=== PATIENT | female | born 1970 | race Asian ===

== ENCOUNTER → 2018-04-07 | Outpatient (CLI) | payer BC | END | disposition home or self-care (01) | LOC: CFH 10:22 | PROVIDERS: ATTEND Nurse Practitioner Family | DX: M21.941 Unspecified acquired deformity of hand, right hand (principal) ==

== ENCOUNTER → 2018-10-20 | Outpatient (CLI) | payer BC | END | disposition home or self-care (01) | LOC: CFH 08:38 | PROVIDERS: ATTEND Nurse Practitioner Family | DX: N63.10 Unspecified lump in the right breast, unspecified quadrant (principal); N63.20 Unspecified lump in the left breast, unspecified quadrant | CPT/HCPCS: 76642; 77066; G0279 ==

== ENCOUNTER → 2018-11-02 | Outpatient (CLI) | payer BC ==
[~2018-11-02] MED LIST: LIDOCAINE 1%, 20ML ONE; SODIUM BICARBONATE 4.0%, 5ML ONE
== END | disposition home or self-care (01) ==
LOC: CFH 08:30
PROVIDERS: ATTEND Nurse Practitioner Family
DX: N60.12 Diffuse cystic mastopathy of left breast (principal); M81.0 Age-related osteoporosis without current pathological fracture
CPT/HCPCS: 19083; 77065; 77080; 88305; J3490

== ENCOUNTER → 2018-11-26 | Outpatient (CLI) | payer BC | END | disposition home or self-care (01) | LOC: CFH 08:53 | PROVIDERS: ATTEND Nurse Practitioner Family | DX: N20.0 Calculus of kidney (principal); R31.9 Hematuria, unspecified | CPT/HCPCS: 74176 ==

== ENCOUNTER → 2020-03-22 | Outpatient (CLI) | payer BC | END | disposition home or self-care (01) | LOC: CFH 11:59 | PROVIDERS: ATTEND Nurse Practitioner Family | DX: N63.11 Unspecified lump in the right breast, upper outer quadrant (principal) | CPT/HCPCS: 76642; 77066; G0279 ==

== ENCOUNTER → 2020-08-31 | Outpatient (CLI) | payer BC | END | disposition home or self-care (01) | LOC: CFH 13:02 | PROVIDERS: ATTEND Nurse Practitioner Family | DX: N63.11 Unspecified lump in the right breast, upper outer quadrant (principal) | CPT/HCPCS: 76642; 77061; 77065; G0279 ==

== ENCOUNTER 2020-10-12 12:17 | Emergency (ER) | payer BC ==
[~2020-10-12] VITALS: Ht 162.6 cm; Wt 52.4 kg
--- NOTE | 2020-10-12 12:34 | NUR ---
PT BROUGHT BACK TO ROOM VIA WC WITH .
--- NOTE | 2020-10-12 12:52 | NUR ---
this is a 50 yr old female c/o rlq abd pain. recently seen at [facility] and cleared from kidney stones and dx of constipation. pt seen at pcp this am and was told she has an elevated wbc and should be ruled out for appendicitis
[2020-10-12] MEDS ORDERED: SODIUM CHLORIDE 0.9% 1,000ML IVBOLUS ONE (13:00)
[2020-10-12] MEDS ORDERED: ONDANSETRON 2MG/ML, 2ML IVPush ONE (13:00)
[2020-10-12] MEDS ORDERED: ONDANSETRON 2MG/ML, 2ML ONE (13:02)
[2020-10-12] MEDS ORDERED: MORPHINE SULFATE 4 MG/ML, 1ML ONE ×2 (13:03→13:55)
[2020-10-12 13:35] LABS: BASOPHILS % (AUTO) 0 % (0-1); EOSINOPHILS % (AUTO) 1 % (1-7); LYMPHOCYTES % (AUTO) 24 % (22-44); MEAN CORPUSCULAR HEMOGLOBIN 32.7 pg (27.0-34.8); MEAN CORPUSCULAR HGB CONC 33.6 g/dL (32.4-35.8); MEAN PLATELET VOLUME 7.2 fL (7.4-10.4); MONOCYTES % (AUTO) 5 % (2-9); NEUTROPHILS % (AUTO) 69 % (42-75); PLATELET COUNT 212 x10^3/uL (130-400); RED BLOOD COUNT 4.47 x10^6/uL (3.82-5.3); RED CELL DISTRIBUTION WIDTH 12.4 % (9.6-15.2)
[2020-10-12] MEDS: MORPHINE SULFATE 4 MG/ML, 1ML IVPush PRN ×2 (13:36→13:58)
[2020-10-12 13:41] LABS: MD NO
[2020-10-12 13:43] LABS: ALBUMIN 3.2 g/dL (3.4-5.0); ANION GAP 6 mmol/L (5-15); CALCIUM 8.9 mg/dL (8.5-10.1); CHLORIDE 108 mmol/L (98-107)
[2020-10-12 13:46] LABS: ALANINE AMINOTRANSFERASE 61 U/L (12-78); ALKALINE PHOSPHATASE 82 U/L (45-117); BILIRUBIN,TOTAL 0.2 mg/dL (0.2-1.0); CREATININE 0.75 mg/dL (0.55-1.02); TOTAL PROTEIN 7.1 g/dL (6.4-8.2)
--- NOTE | 2020-10-12 13:58 | NUR ---
pt medicated per order prior to ct. pt to ct now
[2020-10-12] MEDS ORDERED: OMNIPAQUE 350 MG/ML, 100ML BOTTLE ONE (14:08)
[2020-10-12 14:32] LABS: MICROSCOPIC NOT IND
[2020-10-12 15:28] VITALS: BP 106/71
== END 2020-10-12 15:36 | disposition home or self-care (01) ==
LOC: ED 12:43
DX: R10.33 Periumbilical pain (principal); R10.31 Right lower quadrant pain; K59.00 Constipation, unspecified; R11.0 Nausea; E03.9 Hypothyroidism, unspecified; Z90.49 Acquired absence of other specified parts of digestive tract; Z90.89 Acquired absence of other organs; Z90.710 Acquired absence of both cervix and uterus
CPT/HCPCS: 36415; 74177; 80053; 81003; 83690; 85025; 96361; 96374; 96375; 99285; J2270; J2405; J7030; Q9967

== ENCOUNTER → 2020-12-26 | Outpatient (CLI) | payer BC ==
[~2020-12-26] MED LIST changes: +CYCL10TA2 PO; +ENTE0.5T PO; +FINA5TAB4 PO; +HYOS0.1260 PO; +LEVO25TA4 PO; -LIDOCAINE 1%, 20ML ONE; +MELO15TA24 PO; +MINO60SO TP; +PREG50CA PO; -SODIUM BICARBONATE 4.0%, 5ML ONE; +TRAZ50TA66 PO
== END | disposition home or self-care (01) ==
LOC: STAR 14:11
PROVIDERS: ATTEND Surgery
DX: Z20.822 Contact with and (suspected) exposure to COVID-19 (principal); N63.10 Unspecified lump in the right breast, unspecified quadrant
CPT/HCPCS: U0003; U0005

== ENCOUNTER 2020-12-31 08:46 | Day surgery (SDC) | payer BC ==
[~2020-12-31] VITALS: Ht 162.6 cm; Wt 49.4 kg
[2020-12-31] MEDS ORDERED: LIDOCAINE-MPF 1%, 2ML ONE (09:29)
[2020-12-31] MEDS ORDERED: CHLORHEXIDINE 15 ML UDC PO ONE (09:30)
[2020-12-31] MEDS ORDERED: LIDOCAINE-MPF 1%, 2ML INFIL ONE (09:30)
[2020-12-31] MEDS ORDERED: FENTANYL PF 100 MCG/2ML ONE ×2 (09:30→11:10)
[2020-12-31] MEDS ORDERED: LACTATED RINGERS 1,000 ML IV SCH (09:30)
[2020-12-31] MEDS ORDERED: MIDAZOLAM 1 MG/ML, 2ML ONE (09:30)
[2020-12-31 09:36] VITALS: BP 105/68
[2020-12-31] MEDS ORDERED: CHLORHEXIDINE 15 ML UDC ONE (09:39)
[2020-12-31] MEDS ORDERED: SCOPOLAMINE 1MG PATCH TD ONE ×2 (09:45→10:00)
[2020-12-31] MEDS ORDERED: CEFAZOLIN 1,000 MG ONE (10:04)
[2020-12-31] MEDS ORDERED: NEOSTIGMINE 1 MG/ML, 10ML ONE (10:04)
[2020-12-31] MEDS ORDERED: DEXAMETHASONE 4 MG/ML, 1ML ONE (10:04)
[2020-12-31] MEDS ORDERED: GLYCOPYRROLATE 0.2MG/1ML, 5ML ONE (10:04)
[2020-12-31] MEDS ORDERED: ROCURONIUM 10MG/ML,5ML ONE (10:04)
[2020-12-31] MEDS ORDERED: SUCCINYLCHOLINE 20 MG/ML, 10ML ONE (10:04)
[2020-12-31] MEDS ORDERED: ONDANSETRON 2MG/ML, 2ML ONE (10:04)
[2020-12-31] MEDS ORDERED: PROPOFOL 10 MG/ML, 20ML ONE (10:04)
[2020-12-31] MEDS ORDERED: BUPIVACAINE/PF 0.25% INFIL ONE (10:05)
[2020-12-31] MEDS ORDERED: ONDANSETRON 2MG/ML, 2ML IVPush PRN (10:30)
[2020-12-31] MEDS ORDERED: HYDROmorphone 1 MG/ML, 1ML INJ IVPush PRN (10:30)
[2020-12-31] MEDS ORDERED: MEPERIDINE/PF 25MG/0.5ML IVPush PRN (10:30)
[2020-12-31] MEDS ORDERED: PROMETHAZINE 25 MG/ML, 1ML IVPush PRN (10:30)
[2020-12-31] MEDS ORDERED: HYDROcodone/APAP 7.5-325MG/15ML UDC PO PRN (10:30)
[2020-12-31] MEDS ORDERED: OXYcodone 5 MG/5 ML ORAL.SOL UDC ONE (11:10)
[2020-12-31] MEDS: OXYcodone 5 MG/5 ML ORAL.SOL UDC PO PRN ×2 (11:16→13:33)
[2020-12-31] MEDS: FENTANYL PF 100 MCG/2ML IV PRN ×3 (11:16→11:30)
== END 2020-12-31 14:15 | disposition home or self-care (01) ==
LOC: OUT 08:46
PROVIDERS: ATTEND Surgery
DX: N63.11 Unspecified lump in the right breast, upper outer quadrant (principal); N60.31 Fibrosclerosis of right breast; E03.9 Hypothyroidism, unspecified; M79.7 Fibromyalgia; M85.88 Other specified disorders of bone density and structure, other site; Z88.1 Allergy status to other antibiotic agents; Z88.8 Allergy status to other drugs, medicaments and biological substances; Z91.040 Latex allergy status; Z91.018 Allergy to other foods; Z91.048 Other nonmedicinal substance allergy status; Z90.49 Acquired absence of other specified parts of digestive tract; Z90.710 Acquired absence of both cervix and uterus; Z98.890 Other specified postprocedural states; Z79.899 Other long term (current) drug therapy; Z87.891 Personal history of nicotine dependence
CPT/HCPCS: 19120; 88305; J0330; J0690; J1100; J1170; J2250; J2405; J2704; J2710; J3010; J7120